=== PATIENT | female | born 1960 | race Caucasian/White ===

== ENCOUNTER → 2024-01-15 12:01 | Outpatient (REF) | payer OTHER, SELFPAY | LOC: HWRAD 12:01 | PROVIDERS: ATTENDING PHYSICIAN Family Medicine | DX: M79.672 Pain in left foot (principal) | CPT/HCPCS: 73630 ==

== ENCOUNTER → 2024-02-08 13:31 | Outpatient (REF) | payer OTHER, SELFPAY | LOC: PAVMRI 13:31 | PROVIDERS: ATTENDING PHYSICIAN Family Medicine | DX: Z87.898 Personal history of other specified conditions (principal); R90.89 Other abnormal findings on diagnostic imaging of central nervous system; Z91.81 History of falling | CPT/HCPCS: 70553; A9575 ==

== ENCOUNTER → 2024-03-08 06:30 | Day surgery (SDC) | payer OTHER, SELFPAY | LOC: GI 06:30 | PROVIDERS: ATTENDING PHYSICIAN Internal Medicine Gastroenterology | DX: R12 Heartburn (principal) | CPT/HCPCS: 43235 ==

== ENCOUNTER → 2024-04-04 11:18 | Outpatient (REF) | payer OTHER, SELFPAY | LOC: DHCBC/DCA 11:18 | PROVIDERS: ATTENDING PHYSICIAN Internal Medicine Cardiovascular Disease; FAMILY PHYSICIAN Family Medicine | DX: R06.09 Other forms of dyspnea (principal); R07.89 Other chest pain | CPT/HCPCS: 78452; 93017; A9500; J2785 ==

== ENCOUNTER → 2024-04-06 12:56 | Outpatient (REF) | payer OTHER, SELFPAY | LOC: HWRCS 12:56 | PROVIDERS: ATTENDING PHYSICIAN Internal Medicine Cardiovascular Disease; FAMILY PHYSICIAN Family Medicine | DX: R06.09 Other forms of dyspnea (principal) | CPT/HCPCS: 93306 ==

== ENCOUNTER → 2024-04-27 06:29 | Day surgery (SDC) | payer OTHER, SELFPAY | LOC: GI 06:29 | PROVIDERS: ATTENDING PHYSICIAN Internal Medicine Gastroenterology | DX: K29.70 Gastritis, unspecified, without bleeding (principal); K44.9 Diaphragmatic hernia without obstruction or gangrene; K31.7 Polyp of stomach and duodenum; K31.89 Other diseases of stomach and duodenum; R12 Heartburn; Z87.19 Personal history of other diseases of the digestive system | CPT/HCPCS: 43239; 88305; 88342 ==

== ENCOUNTER → 2024-05-31 18:36 | Outpatient (REF) | payer OTHER, SELFPAY | LOC: PAVMRI 18:36 | PROVIDERS: ATTENDING PHYSICIAN Physician Assistant; FAMILY PHYSICIAN Family Medicine | DX: M54.12 Radiculopathy, cervical region (principal) | CPT/HCPCS: 72141 ==

== ENCOUNTER → 2025-01-02 12:49 | Outpatient (REF) | payer OTHER, SELFPAY | LOC: HWRAD 12:49 | PROVIDERS: ATTENDING PHYSICIAN Podiatrist Foot & Ankle Surgery; FAMILY PHYSICIAN Family Medicine | DX: M19.072 Primary osteoarthritis, left ankle and foot (principal) | CPT/HCPCS: 73630 ==

== ENCOUNTER → 2025-01-20 07:50 | Outpatient (REF) | payer OTHER, SELFPAY | LOC: RAD 07:50 | PROVIDERS: ATTENDING PHYSICIAN Internal Medicine Gastroenterology; FAMILY PHYSICIAN Family Medicine | DX: K21.9 Gastro-esophageal reflux disease without esophagitis (principal) | CPT/HCPCS: 78264; A9541 ==

== ENCOUNTER 2025-03-29 06:09 | Day surgery (SDC) | payer OTHER, SELFPAY ==
[2025-03-09 14:24] VITALS: BMI 36.3
[2025-03-09 14:27] LABS: Hematocrit 39.4 % (37.0-47.0); Hemoglobin 12.9 g/dL (12.0-16.0); Mean Corp Hgb Conc. 32.7 g/dL (33.0-37.0); Mean Corpuscular Hgb 28.9 pg (27.0-31.0); Mean Corpuscular Volume 88.3 fL (81.0-99.0); Platelet Count 286 10^3/uL (130-400); Red Blood Cell Count 4.46 10^6/uL (4.20-5.40); Red Cell Dist. Width 13.4 % (11.5-14.5)
[2025-03-09 14:48] VITALS: BMI 36.3
[2025-03-09 14:59] LABS: ALT (SGPT) 21 U/L (0-35); AST (SGOT) 25 U/L (14-36); Albumin 4.7 g/dl (3.5-5.0); Alkaline Phosphatase 138 U/L (38-126); Blood Urea Nitrogen 27 mg/dl (7-17); Calcium 10.6 mg/dl (8.4-10.2); Carbon Dioxide 24 mmol/L (22-30); Chloride 110 mmol/L (98-107); Estimated Creatinine Clearance 58 ml/min; Glucose 99 mg/dl (70-99); Potassium 4.7 mmol/L (3.5-5.1); Sodium 143 mmol/L (135-145); Total Bilirubin 0.6 mg/dl (0.2-1.3); Total Protein 7.3 g/dl (6.3-8.2); eGFR 56.11
[2025-03-10 10:18] LABS: Glycohemoglobin (HgbA1c) 5.5 % (4.0-5.6)
--- NOTE | 2025-03-15 14:54 | VNURNOTE ---
Patient is scheduled for an elective R TKA on 03/29/25- she is a same day patient with Dr Parmar. Spoke with patient prior to surgery. Introduced role of [facility] VN Liaison. Patient reports that she lives with her spouse.
She has a cane and a standard walker. She will obtain a rolling walker.
PCP is Dr Kori Thomas.
Discussed [facility] joint protocol and post surgical plans.
Reviewed that she will have VN services initially and will then start outpatient PT.
Patient selects [facility] VN for her home care needs and will go to Outpt PT on Rd- Scheduled for 04/04.
Patient is in agreement with plan and states that her spouse will be home with her. Advised to bring RW with her day of surgery. [facility]erral [facility]. Patient has a dog at home. Pet policy reviewed and pt agreeable.
Plan: [facility] VN per [facility] joint protocol on 03/29 then outpt PT on 04/04
[2025-03-29] VITALS (14 sets, daily range): BP systolic 91–145; BP diastolic 44–85
[2025-03-29] MEDS: TYLENOL 650 MG PO (07:32)
[2025-03-29] MEDS: NORMOSOL-R/PLASMALYTE-A 1000 IV (07:32)
[2025-03-29] MEDS: CELEBREX 200 MG PO (07:32)
--- NOTE | 2025-03-29 07:46 | W.DS.TRANS ---
DC Summary - Bulldozer Engineer
-
Discharge Instructions:
Discharge Diagnosis/Procedures R TKA 03/29/25
Diet Diabetic, Carb Controlled
Activity With Walker
Additional Activity Adequate hydration and wear TEDs stockings to
prevent low blood pressure/dizziness
Driving Restrictions No driving
Bathing Restrictions OK to Shower
Other Services PT
Instructions:
Stand-Alone Forms: SDS Total Hip and Knee D/C
Changes to Home Medications: Yes
Discharge Medications:
DC Medications w/original date entered in in[facility]
lamotrigine 100 mg tablet (Lamictal) 200 mg PO BID Seizures 01/23/18
rizatriptan 10 mg tablet (Maxalt) 10 mg PO DAILY PRN migraines 01/23/18
Bifidobacterium infantis 4 mg capsule (Align (B.infantis)) 4 mg PO DAILY Gastrointestinal issue 06/04/20
Vitamin D3: 6,000 units PO DAILY Supplement 06/04/20
biotin 10,000 mcg capsule 5,000 mcg PO DAILY Supplement 06/04/20
levothyroxine 88 mcg tablet 88 mcg PO DAILY Thyroid 06/04/20
Benecil 2 tbsp PO QPM 03/06/25
Centrum 1 dose PO DAILY 03/06/25
albuterol sulfate 90 mcg/actuation aerosol inhaler 2 puff inhalation QID PRN shortness of breath, wheezing 03/06/25
artificial tears with lanolin eye ointment 1 applic ophthalmic (eye) TID 03/06/25
atogepant 60 mg tablet (Qulipta) 60 mg PO DAILY 03/06/25
cyanocobalamin (vitamin B-12) 1 dose PO DAILY 03/06/25
eletriptan 40 mg tablet 40 mg PO PRN PRN migraine 03/06/25
esomeprazole magnesium 40 mg capsule,delayed release (Nexium) 40 mg PO DAILY 03/06/25
fexofenadine 180 mg tablet 180 mg PO DAILY 03/06/25
fluticasone propionate 50 mcg/actuation nasal spray,suspension 2 spray intranasal DAILY 03/06/25
magnesium 2 tab PO HS 03/06/25
pitolisant 17.8 mg tablet (Wakix) 17.8 mg PO DAILY 03/06/25
pregabalin 50 mg capsule (Lyrica) 50 mg PO TID 03/06/25
topiramate 50 mg tablet (Topamax) 50 mg PO BID 03/06/25
vitamin B complex 1 tab PO DAILY 03/06/25
cefadroxil 500 mg capsule 500 mg PO BID infection prevention #14 caps 03/09/25
dexamethasone 4 mg tablet 4 mg PO BID inflammation #6 tabs 03/09/25
mupirocin 2 % topical ointment 1 applic topical BID infection prevention #1 tube 03/09/25
ondansetron 4 mg disintegrating tablet 4 mg PO Q6H PRN n/v #20 tabs 03/09/25
oxycodone 5 mg tablet 5 mg PO Q6H PRN 1 tab moderate pain, 2 tabs severe pain #30 tabs 03/09/25
acetaminophen 325 mg tablet (Tylenol) 650 mg (2 x 325 mg) PO QID #1 tab 03/29/25
aspirin 325 mg tablet 325 mg PO DAILY blood clot prevention #1 tab 03/29/25
diclofenac sodium 1 % topical gel 2 g topical QID #0 grams 03/29/25
docusate sodium 100 mg capsule (Colace) 100 mg PO BID stool softner #1 cap 03/29/25
magnesium hydroxide 400 mg/5 mL oral suspension (Milk of Magnesia) 30 ml PO HS PRN constipation #1 mL 03/29/25
sennosides 8.6 mg tablet (Senokot) 17.2 mg (2 x 8.6 mg) PO BID laxative #2 tabs 03/29/25
Home Medication Changes
cefadroxil 500 mg capsule 500 mg PO BID infection prevention #14 caps 03/09/25
dexamethasone 4 mg tablet 4 mg PO BID inflammation #6 tabs 03/09/25
mupirocin 2 % topical ointment 1 applic topical BID infection prevention #1 tube 03/09/25
ondansetron 4 mg disintegrating tablet 4 mg PO Q6H PRN n/v #20 tabs 03/09/25
oxycodone 5 mg tablet 5 mg PO Q6H PRN 1 tab moderate pain, 2 tabs severe pain #30 tabs 03/09/25
acetaminophen 325 mg tablet (Tylenol) 650 mg (2 x 325 mg) PO QID #1 tab 03/29/25
aspirin 325 mg tablet 325 mg PO DAILY blood clot prevention #1 tab 03/29/25
diclofenac sodium 1 % topical gel 2 g topical QID #0 grams 03/29/25
docusate sodium 100 mg capsule (Colace) 100 mg PO BID stool softner #1 cap 03/29/25
magnesium hydroxide 400 mg/5 mL oral suspension (Milk of Magnesia) 30 ml PO HS PRN constipation #1 mL 03/29/25
sennosides 8.6 mg tablet (Senokot) 17.2 mg (2 x 8.6 mg) PO BID laxative #2 tabs 03/29/25
Pending Results: No
[2025-03-29] MEDS: VANCOCIN 530 MG IV (08:16)
[2025-03-29] MEDS: NSS 250 IV (09:40)
[2025-03-29] MEDS: ProAmatine 5 MG PO (09:55)
[2025-03-29] MEDS: ROXICODONE 5 MG PO (10:48)
[2025-03-29] MEDS: ANCEF 5 IV (12:02)
== END 2025-03-29 12:40 | disposition home or self-care (01) ==
LOC: SDS 06:09
PROVIDERS: ATTENDING PHYSICIAN Orthopaedic Surgery; FAMILY PHYSICIAN Family Medicine; OTHER PHYSICIAN Physician Assistant Medical
DX: M17.11 Unilateral primary osteoarthritis, right knee (principal)
CPT/HCPCS: 27447; 36415; 73560; 80053; 83036; 85027; 87070; 87147; 93005; 97116; 97162; C1713; C1776

== ENCOUNTER → 2025-07-17 12:15 | Outpatient (REF) | payer OTHER, SELFPAY | LOC: HWRAD 12:15 | PROVIDERS: ATTENDING PHYSICIAN Podiatrist Foot & Ankle Surgery; FAMILY PHYSICIAN Family Medicine | DX: M19.072 Primary osteoarthritis, left ankle and foot (principal) | CPT/HCPCS: 73630 ==

== ENCOUNTER → 2025-08-14 14:52 | Outpatient (REF) | payer OTHER, SELFPAY | LOC: HWRAD 14:52 | PROVIDERS: ATTENDING PHYSICIAN Nurse Practitioner Adult Health | DX: R07.81 Pleurodynia (principal); Z91.81 History of falling | CPT/HCPCS: 71101 ==

== ENCOUNTER 2025-08-18 06:17 | Day surgery (SDC) | payer OTHER, SELFPAY | END 2025-08-18 14:16 | disposition home or self-care (01) | LOC: GI 06:17 | PROVIDERS: ATTENDING PHYSICIAN Internal Medicine Gastroenterology | DX: Z12.11 Encounter for screening for malignant neoplasm of colon (principal); K57.30 Diverticulosis of large intestine without perforation or abscess without bleeding; K64.8 Other hemorrhoids; Z86.0100 Personal history of colon polyps, unspecified; Z87.19 Personal history of other diseases of the digestive system | CPT/HCPCS: G0105 ==